=== PATIENT | male | born 1970 | race Caucasian/White ===

== ENCOUNTER 2018-07-22 09:37 | Emergency (ER) | payer MEDICAID ==
[~2018-07-22] VITALS: Ht 167.6 cm; Wt 92.9 kg
[~2018-07-22 09:37] MED LIST: CIPR500T4 PO; HYDR-3498 PO; IBUP-1542 PO
[2018-07-22 10:01] VITALS: Ht 167.6 cm; Wt 92.9 kg
[2018-07-22] MEDS ORDERED: KETOROLAC 30 MG INJ IM STA (11:30)
[2018-07-22] MEDS ORDERED: HYDR-4011 PO (13:44)
[2018-07-22] MEDS ORDERED: TAMS-14 PO (13:44)
[2018-07-22] MEDS ORDERED: IBUP-1542 PO (13:44)
[2018-07-22] MEDS ORDERED: ACET-141 PO (13:44)
--- NOTE | 2018-07-22 13:47 | ERD ---
ER Documentation Chief Complaint Chief Complaint Complains of back pain with left testicular pain x 2 hours ROS All systems reviewed and are negative except as per history of present illness. Medications Home Meds Active Scripts Tamsulosin Hcl* (Flomax*) 0.4 Mg Cap.er.24h, 0.4 MG PO DAILY for kidney stone for 14 Days, #14 CAP Prov:VJ GAVIN DO 07/22/18 Ibuprofen* (Motrin*) 600 Mg Tab, 600 MG PO Q6H PRN for PAIN AND OR ELEVATED TEMP, #30 TAB Prov:VJ GAVIN DO 07/22/18 Acetaminophen* (Acetaminophen*) 500 MG Extra Strength Tablet, 500 MG PO Q4H PRN for PAIN AND OR ELEVATED TEMP, #30 TAB Prov:VJ GAVIN DO 07/22/18 Hydrocodone/Acetaminophen ([place] 5-325 Tablet) 1 Each Tablet, 1 EACH PO Q6H PRN for PAIN, #10 TAB Prov:VJ GAVIN DO 07/22/18 Ibuprofen* (Motrin*) 600 Mg Tab, 600 MG PO Q6, #20 TAB Prov:FRANCESCA TRAN MD 09/12/15 Hydrocodone Bit-Acetaminophen* ([place]*) 5-325 Mg Tab, 1 TAB PO Q6 PRN for PAIN, #10 TAB Prov:FRANCESCA TRAN MD 09/12/15 Ciprofloxacin Hcl* (Ciprofloxacin Hcl*) 500 Mg Tablet, 500 MG PO BID for 7 Days, TAB Prov:FRANCESCA TRAN MD 09/12/15 Allergies Allergies: Coded Allergies: No Known Drug Allergies (Verified Allergy, Unknown, 09/12/15) PMhx/Soc Medical and Surgical Hx: pt denies Medical Hx, pt denies Surgical Hx Hx Alcohol Use: No Hx Substance Use: No Hx Tobacco Use: No Smoking Status: Never smoker Physical Exam Vitals Vital Signs Date Temp Pulse Resp B/P (MAP) Pulse Ox O2 O2 Flow FiO2 Time Delivery Rate 07/22/18 97.6 74 20 171/92 97 10:01 (118) Physical Exam Const: No acute distress Head: Atraumatic Eyes: Normal Conjunctiva ENT: Normal External Ears, Nose and Mouth. Neck: Full range of motion. No meningismus. Resp: Clear to auscultation bilaterally Cardio: Regular rate and rhythm, no murmurs Abd: Soft, non tender, non distended. Normal bowel sounds Skin: No petechiae or rashes Back: No midline or flank tenderness Ext: No cyanosis, or edema Neur: Awake and alert Psych: Normal Mood and Affect Result Diagram: 07/22/18 1214 07/22/18 1214 Results 24 hrs Laboratory Tests Test 07/22/18 10:58 07/22/18 12:14 Urine Color YELLOW Urine Clarity CLEAR Urine pH 6.0 Urine Specific [place] 1.015 Urine Ketones NEGATIVE mg/dL Urine Nitrite NEGATIVE mg/dL Urine Bilirubin NEGATIVE mg/dL Urine Urobilinogen NEGATIVE mg/dL Urine Leukocyte Esterase NEGATIVE Papito/ul Urine Microscopic RBC > 182 /HPF Urine Microscopic WBC 10 /HPF Urine Hemoglobin 3+ mg/dL Urine Glucose NEGATIVE mg/dL Urine Total Protein NEGATIVE mg/dl White Blood Count 7.3 10^3/ul Red Blood Count 5.14 10^6/ul Hemoglobin 15.6 g/dl Hematocrit 46.2 % Mean Corpuscular Volume 89.9 fl Mean Corpuscular Hemoglobin 30.4 pg Mean Corpuscular Hemoglobin Concent 33.8 g/dl Red Cell Distribution Width 12.7 % Platelet Count 184 10^3/UL Mean Platelet Volume 9.8 fl Immature Granulocytes % 0.400 % Neutrophils % 74.7 % Lymphocytes % 14.2 % Monocytes % 9.7 % Eosinophils % 0.5 % Basophils % 0.5 % Nucleated Red Blood Cells % 0.0 /100WBC Immature Granulocytes # 0.030 10^3/ul Neutrophils # 5.5 10^3/ul Lymphocytes # 1.0 10^3/ul Monocytes # 0.7 10^3/ul Eosinophils # 0.0 10^3/ul Basophils # 0.0 10^3/ul Nucleated Red Blood Cells # 0.0 10^3/ul Sodium Level 139 mmol/L Potassium Level 4.6 mmol/L Chloride Level 101 mmol/L Carbon Dioxide Level 28 mmol/L Anion Gap 10 Blood Urea Nitrogen 14 mg/dl Creatinine 0.92 mg/dl Est Glomerular Filtrat Rate mL/min > 60 mL/min Glucose Level 112 mg/dl Calcium Level 10.0 mg/dl Total Bilirubin 0.9 mg/dl Direct Bilirubin 0.00 mg/dl Indirect Bilirubin 0.9 mg/dl Aspartate Amino Transf (AST/SGOT) 30 IU/L Alanine Aminotransferase (ALT/SGPT) 40 IU/L Alkaline Phosphatase 123 IU/L Total Protein 7.5 g/dl Albumin 4.5 g/dl Globulin 3.00 g/dl Albumin/Globulin Ratio 1.50 Current Medications Medications Dose Sig/Ty Start Time Status Last (Trade) Ordered Route PRN Stop Time Admin Dose Reason Admin Ketorolac 30 mg ONCE STAT 07/22/18 DC 07/22/18 Tromethamine IM 11:30 11:33 (Toradol) 07/22/18 11:31 Departure Diagnosis: Primary Impression: Kidney stone on left side Condition: Fair Patient Instructions: Kidney Stone W/ Colic Referrals: [facility] YOU HAVE RECEIVED A MEDICAL SCREENING EXAM AND THE RESULTS INDICATE THAT YOU DO NOT HAVE A CONDITION THAT REQUIRES URGENT TREATMENT IN THE EMERGENCY DEPARTMENT. FURTHER EVALUATION AND TREATMENT OF YOUR CONDITION CAN WAIT UNTIL YOU ARE SEEN IN YOUR DOCTORS OFFICE WITHIN THE NEXT 1-2 DAYS. IT IS YOUR RESPONSIBILITY TO MAKE AN APPOINTMENT FOR FOLOW-UP CARE. IF YOU HAVE A PRIMARY DOCTOR --you should call your primary doctor and schedule an appointment IF YOU DO NOT HAVE A PRIMARY DOCTOR YOU CAN CALL OUR PHYSICIAN REFERRAL HOTLINE AT IF YOU CAN NOT AFFORD TO SEE A PHYSICIAN YOU CAN CHOSE FROM THE FOLLOWING [facility] [address] [facility]. [facility] [address] [facility]. [facility] [address] [facility]. [facility] [address] [facility]. [facility] [address] [facility]. [facility]. [address] Additional Instructions: Llame al doctor MAANA y alfredo shorty CLYDE PARA DENTRO DE 1-2 [place].Dgale a la secretaria que nosotros le instruimos hacer esta clyde.Avise o llame si mccain condicin se empeora antes de la clyde. Regresa aqui si peor o no mejor. Follow up with urology. VJ GAVIN DO Jul 22, 2018 13:47
[2018-07-22 13:56] VITALS: BP 141/96; PULSE 71; RESP 16
== END 2018-07-22 14:12 | disposition home or self-care (01) ==
LOC: FTE 09:37
DX: N20.0 Calculus of kidney (principal)
CPT/HCPCS: 74176; 76870; 80053; 81001; 85025; 96372; J1885; Z7502